=== PATIENT | male | born 1970 | race Caucasian/White ===

== ENCOUNTER 2018-04-21 10:27 | Inpatient (IN) | payer OTHER, MEDICAID ==
[2018-04-21 12:11] LABS: ADD MAN DIFF? NO
[2018-04-21 12:17] LABS: WHITE BLOOD COUNT 8.3 10^3/ul (4.8-10.8)
[2018-04-21 12:17] LABS: BASOPHIL # 0.1 10^3/ul (0.0-0.1); EOSINOPHILS # 0.5 10^3/ul (0.0-0.5); EOSINOPHILS % 5.4 % (0.0-7.0); LYMPHOCYTES # 1.8 10^3/ul (0.8-2.9); LYMPHOCYTES % 22.1 % (15.0-51.0); MEAN CORPUSCULAR HEMOGLOBIN 30.2 pg (29.0-33.0); MEAN CORPUSCULAR HGB CONC 34.2 g/dl (32.0-37.0); MEAN CORPUSCULAR VOLUME 88.4 fl (82.0-101.0); MEAN PLATELET VOLUME 10.6 fl (7.4-10.4); MONOCYTE # 0.6 10^3/ul (0.3-0.9); NEUTROPHIL # 5.3 10^3/ul (1.6-7.5); NEUTROPHILS % 63.9 % (39.0-77.0); PLATELET COUNT 163 10^3/UL (140-415); RED CELL DISTRIBUTION WIDTH 13.1 % (11.5-14.5)
[2018-04-21 12:25] LABS: ADD UMIC YES; UR ASCORBIC ACID NEGATIVE (NEGATIVE); UR BACTERIA FEW /HPF (NONE SEEN); UR BILIRUBIN (Dip) NEGATIVE (NEGATIVE); UR BLOOD (Dip) 2+ mg/dL (NEGATIVE); UR CLARITY SLIGHTLY CLOUDY (CLEAR); UR COLOR YELLOW (YELLOW); UR GLUCOSE (Dip) NEGATIVE (NEGATIVE); UR KETONES (Dip) TRACE mg/dL (NEGATIVE); UR LEUKOCYTE ESTERASE (Dip) NEGATIVE Leu/ul (NEGATIVE); UR MUCUS MANY /HPF (NONE SEEN); UR NITRITE (Dip) NEGATIVE (NEGATIVE); UR RBC 26 /HPF (0-5); UR SPECIFIC GRAVITY (Dip) 1.023 (1.003-1.030); UR TOTAL PROTEIN (Dip) 1+ mg/dl (NEGATIVE); UR UROBILINOGEN (Dip) 1+ mg/dL (NEGATIVE); UR WBC 5 /HPF (0-5)
[2018-04-21 12:32] LABS: ALANINE AMINOTRANSFERASE 23 IU/L (13-69); ALBUMIN 3.9 g/dl (3.3-4.9); ALBUMIN/GLOBULIN RATIO 1.14; ALKALINE PHOSPHATASE 76 IU/L (42-121); ANION GAP 11 (8-16); ASPARTATE AMINO TRANSFERASE 23 IU/L (15-46); BILIRUBIN,INDIRECT 0.5 mg/dl (0-1.1); BILIRUBIN,TOTAL 0.5 mg/dl (0.2-1.3); BLOOD UREA NITROGEN 11 mg/dl (7-20); CALCIUM 9.1 mg/dl (8.4-10.2); CARBON DIOXIDE 29 mmol/L (21-31); CHLORIDE 107 mmol/L (97-110); CREATININE 0.92 mg/dl (0.61-1.24); GLUCOSE 93 mg/dl (70-220); LIPASE 66 U/L (23-300); SODIUM 143 mmol/L (135-144); TOTAL PROTEIN 7.3 g/dl (6.1-8.1)
[2018-04-21 12:44] LABS: TROPONIN-I 0.011 ng/ml (0.000-0.120)
[2018-04-21 13:17] LABS: D-DIMER > 10000.00 ng/ml (<460)
[2018-04-21] MEDS: IOHEXOL 100 ML (13:30)
[2018-04-21] MEDS: SOD CHLORIDE 0.9% 100 ML (13:30)
[2018-04-21 14:03] LABS: INR 1.07; PARTIAL THROMBOPLASTIN TIME 34.3 Sec (25.0-35.0); PT RATIO 1.1
[2018-04-21] MEDS ORDERED: NACL 0.9% 3 ML SYG IV (15:00)
[2018-04-21] MEDS ORDERED: ONDANSETRON 4 MG INJ IV (15:30)
[2018-04-21] MEDS ORDERED: ACETAMINOPHEN 325 MG TAB PO (15:30)
[2018-04-21] MEDS: HEPARIN 25000 UNITS/250 ML 250 ML IV (15:39)
[2018-04-21] MEDS: OXYCODONE/ACETAMINOPHEN (5/325) TAB PO ×2 (15:46→21:48)
[2018-04-21] MEDS ORDERED: HEPARIN 1000 UNITS/ML 10 ML INJ IV ×3 (16:00)
[2018-04-21] MEDS: HEPARIN 1000 UNITS/ML 10 ML INJ IV (16:09)
[2018-04-21] MEDS: QUETIAPINE 100 MG TAB PO (20:15)
[2018-04-21] MEDS ORDERED: TAMSULOSIN (SR) 0.4 MG CAP PO (21:00)
[2018-04-22 00:58] LABS: PARTIAL THROMBOPLASTIN TIME 142.8 Sec (25.0-35.0)
[2018-04-22 02:46] LABS: PARTIAL THROMBOPLASTIN TIME 50.1 Sec (25.0-35.0)
[2018-04-22] MEDS: PANTOPRAZOLE (EC) 40 MG TAB PO (05:40)
[2018-04-22] MEDS: OXYCODONE/ACETAMINOPHEN (5/325) TAB PO ×2 (05:41→20:40)
[2018-04-22] MEDS: DULOXETINE 30 MG CAP DR PO (09:06)
[2018-04-22 09:44] LABS: ADD MAN DIFF? NO
[2018-04-22 09:48] LABS: BASOPHIL # 0.1 10^3/ul (0.0-0.1); BASOPHILS % 1.3 % (0.0-2.0); EOSINOPHILS # 0.7 10^3/ul (0.0-0.5); HEMATOCRIT 35.3 % (42.0-52.0); HEMOGLOBIN 11.8 g/dl (14.0-18.0); LYMPHOCYTES # 2.5 10^3/ul (0.8-2.9); LYMPHOCYTES % 35.4 % (15.0-51.0); MEAN CORPUSCULAR HEMOGLOBIN 29.9 pg (29.0-33.0); MEAN CORPUSCULAR HGB CONC 33.4 g/dl (32.0-37.0); MEAN CORPUSCULAR VOLUME 89.6 fl (82.0-101.0); MEAN PLATELET VOLUME 11.6 fl (7.4-10.4); MONOCYTE # 0.5 10^3/ul (0.3-0.9); MONOCYTES % 6.7 % (0.0-11.0); NEUTROPHIL # 3.2 10^3/ul (1.6-7.5); NEUTROPHILS % 45.9 % (39.0-77.0); PLATELET COUNT 165 10^3/UL (140-415); RED BLOOD COUNT 3.94 10^6/ul (4.70-6.10); RED CELL DISTRIBUTION WIDTH 13.1 % (11.5-14.5)
[2018-04-22 10:05] LABS: ALANINE AMINOTRANSFERASE 22 IU/L (13-69); ALBUMIN 3.4 g/dl (3.3-4.9); ALBUMIN/GLOBULIN RATIO 1.03; ALKALINE PHOSPHATASE 69 IU/L (42-121); ASPARTATE AMINO TRANSFERASE 20 IU/L (15-46); BILIRUBIN,INDIRECT 0.3 mg/dl (0-1.1); BILIRUBIN,TOTAL 0.3 mg/dl (0.2-1.3); BLOOD UREA NITROGEN 11 mg/dl (7-20); CALCIUM 8.6 mg/dl (8.4-10.2); CARBON DIOXIDE 28 mmol/L (21-31); CHLORIDE 104 mmol/L (97-110); CREATININE 0.82 mg/dl (0.61-1.24); GLUCOSE 82 mg/dl (70-220); POTASSIUM 3.8 mmol/L (3.5-5.1); TOTAL PROTEIN 6.7 g/dl (6.1-8.1)
[2018-04-22 10:32] LABS: ANION GAP 12 (8-16); SODIUM 140 mmol/L (135-144)
[2018-04-22 10:43] LABS: PARTIAL THROMBOPLASTIN TIME 109.9 Sec (25.0-35.0)
[2018-04-22] MEDS: HEPARIN 25000 UNITS/250 ML 250 ML IV (11:07)
[2018-04-22 11:08] LABS: HEMOGLOBIN A1C 6.1 % (0-5.9)
[2018-04-22 17:31] LABS: PARTIAL THROMBOPLASTIN TIME 76.8 Sec (25.0-35.0)
[2018-04-22] MEDS: QUETIAPINE 100 MG TAB PO (20:40)
[2018-04-22 23:57] LABS: PARTIAL THROMBOPLASTIN TIME 65.5 Sec (25.0-35.0)
[2018-04-23] MEDS: HEPARIN 25000 UNITS/250 ML 250 ML IV ×2 (00:14→02:22)
[2018-04-23] MEDS: PANTOPRAZOLE (EC) 40 MG TAB PO (05:16)
[2018-04-23 09:22] LABS: PARTIAL THROMBOPLASTIN TIME 101.2 Sec (25.0-35.0)
[2018-04-23] MEDS: DULOXETINE 30 MG CAP DR PO (09:34)
[2018-04-23] MEDS: OXYCODONE/ACETAMINOPHEN (5/325) TAB PO ×2 (13:20→21:20)
[2018-04-23] MEDS: ALBUTEROL/IPRATROPIUM (NEB) 3 ML AMP HHN ×2 (16:49→19:32)
[2018-04-23] MEDS: RIVAROXABAN 15 MG TABLET PO (17:32)
[2018-04-23] MEDS: QUETIAPINE 100 MG TAB PO (21:16)
[2018-04-24] MEDS: ALBUTEROL/IPRATROPIUM (NEB) 3 ML AMP HHN ×2 (02:00→08:20)
[2018-04-24] MEDS: PANTOPRAZOLE (EC) 40 MG TAB PO (05:39)
[2018-04-24] MEDS: OXYCODONE/ACETAMINOPHEN (5/325) TAB PO (05:39)
[2018-04-24] MEDS: DULOXETINE 30 MG CAP DR PO (08:05)
[2018-04-24] MEDS: RIVAROXABAN 15 MG TABLET PO (08:05)
[2018-04-24 11:46] LABS: AADO2 Arterial 33.9 mmHg (7.0-24.0); Allen Test ACCEPTAB; Arterial Base Excess 0.7 mmol/L (-3.0-3); Arterial Blood Gas Oxygen Sat 91.4 mmHG (95.0-98.0); Arterial COHb 0.3 % (0.0-3.0); Arterial HCO3 25.9 mmol/L (22.0-26.0); Arterial MetHb 0.1 % (0.0-1.5); Arterial Total Hemglobin 13.6 g/dl (12.0-18.0); Arterial pCO2 43.9 mmhg (35-45); MODE ROOM AIR; Site Right Radial
== END 2018-04-24 12:40 | disposition home or self-care (01) | DRG 175 ==
LOC: FTE 10:27 → TEL 15:04
PROC: 3E033GC Introduction of Other Therapeutic Substance into Peripheral Vein, Percutaneous Approach (ICD-10-PCS; principal; 2018-04-21)
PROC: B31U1ZZ Fluoroscopy of Pulmonary Trunk using Low Osmolar Contrast (ICD-10-PCS; 2018-04-21)
PROC: BB241ZZ Computerized Tomography (CT Scan) of Bilateral Lungs using Low Osmolar Contrast (ICD-10-PCS; 2018-04-21)
DX: I26.92 Saddle embolus of pulmonary artery without acute cor pulmonale (principal); J96.01 Acute respiratory failure with hypoxia; I82.411 Acute embolism and thrombosis of right femoral vein; I82.431 Acute embolism and thrombosis of right popliteal vein; I10 Essential (primary) hypertension; E78.5 Hyperlipidemia, unspecified; F31.9 Bipolar disorder, unspecified; F17.210 Nicotine dependence, cigarettes, uncomplicated; Z79.02 Long term (current) use of antithrombotics/antiplatelets; Z79.01 Long term (current) use of anticoagulants
CPT/HCPCS: 36415; 36600; 71045; 71275; 80053; 81001; 82803; 83036; 83690; 84484; 85025; 85378; 85610; 85730; 93005; 93306; 93971; 94640; 94664; 99285-25

== ENCOUNTER 2018-04-25 11:35 | Inpatient (IN) | payer OTHER ==
[2018-04-25 12:42] LABS: ADD MAN DIFF? NO
[2018-04-25 12:44] LABS: BASOPHIL # 0.1 10^3/ul (0.0-0.1); BASOPHILS % 1.1 % (0.0-2.0); EOSINOPHILS # 0.6 10^3/ul (0.0-0.5); HEMATOCRIT 40.2 % (42.0-52.0); HEMOGLOBIN 13.5 g/dl (14.0-18.0); LYMPHOCYTES # 1.6 10^3/ul (0.8-2.9); LYMPHOCYTES % 21.7 % (15.0-51.0); MEAN CORPUSCULAR HEMOGLOBIN 30.1 pg (29.0-33.0); MEAN CORPUSCULAR HGB CONC 33.6 g/dl (32.0-37.0); MEAN CORPUSCULAR VOLUME 89.7 fl (82.0-101.0); MEAN PLATELET VOLUME 10.1 fl (7.4-10.4); MONOCYTE # 0.5 10^3/ul (0.3-0.9); MONOCYTES % 7.1 % (0.0-11.0); NEUTROPHIL # 4.4 10^3/ul (1.6-7.5); NEUTROPHILS % 61.3 % (39.0-77.0); PLATELET COUNT 241 10^3/UL (140-415); RED BLOOD COUNT 4.48 10^6/ul (4.70-6.10)
[2018-04-25 12:44] LABS: WHITE BLOOD COUNT 7.2 10^3/ul (4.8-10.8)
[2018-04-25 13:04] LABS: INR 1.58; PROTIME 19.2 Sec (11.9-14.9); PT RATIO 1.5
[2018-04-25 13:05] LABS: ALANINE AMINOTRANSFERASE 43 IU/L (13-69); ALBUMIN 4.4 g/dl (3.3-4.9); ALBUMIN/GLOBULIN RATIO 1.22; ALKALINE PHOSPHATASE 75 IU/L (42-121); ANION GAP 12 (8-16); ASPARTATE AMINO TRANSFERASE 57 IU/L (15-46); BILIRUBIN,INDIRECT 0.3 mg/dl (0-1.1); BILIRUBIN,TOTAL 0.3 mg/dl (0.2-1.3); BLOOD UREA NITROGEN 11 mg/dl (7-20); CALCIUM 9.5 mg/dl (8.4-10.2); CARBON DIOXIDE 29 mmol/L (21-31); CHLORIDE 103 mmol/L (97-110); GLUCOSE 116 mg/dl (70-220); PARTIAL THROMBOPLASTIN TIME 43.7 Sec (25.0-35.0); SODIUM 140 mmol/L (135-144)
[2018-04-25] MEDS: OXYCODONE/ACETAMINOPHEN (5/325) TAB PO ×2 (14:33→20:39)
[2018-04-25] MEDS ORDERED: ONDANSETRON 4 MG INJ IV (15:00)
[2018-04-25] MEDS ORDERED: ACETAMINOPHEN 325 MG TAB PO (15:00)
[2018-04-25] MEDS ORDERED: NACL 0.9% 3 ML SYG IV (15:30)
[2018-04-25] MEDS: RIVAROXABAN 15 MG TABLET PO (18:51)
[2018-04-25] MEDS: QUETIAPINE 100 MG TAB PO (20:38)
[2018-04-26] MEDS: RIVAROXABAN 15 MG TABLET PO ×2 (08:42→17:37)
[2018-04-26] MEDS: OXYCODONE/ACETAMINOPHEN (5/325) TAB PO ×2 (13:41→20:21)
[2018-04-26] MEDS: QUETIAPINE 100 MG TAB PO (20:21)
[2018-04-27] MEDS: RIVAROXABAN 15 MG TABLET PO ×2 (09:45→18:14)
[2018-04-27] MEDS: OXYCODONE/ACETAMINOPHEN (5/325) TAB PO (09:47)
== END 2018-04-27 18:30 | disposition home or self-care (01) | DRG 176 ==
LOC: FTE 11:35 → MS1 14:37
DX: I26.99 Other pulmonary embolism without acute cor pulmonale (principal); I82.401 Acute embolism and thrombosis of unspecified deep veins of right lower extremity; R55 Syncope and collapse; F17.200 Nicotine dependence, unspecified, uncomplicated; Z79.01 Long term (current) use of anticoagulants
CPT/HCPCS: 36415; 71045; 80053; 83036; 85025; 85610; 85730; 99285-25

== ENCOUNTER 2018-06-17 08:58 | Emergency (ER) | payer OTHER ==
[2018-06-17 09:29] LABS: ADD MAN DIFF? NO
[2018-06-17 09:31] LABS: BASOPHILS % 0.7 % (0.0-2.0); EOSINOPHILS # 0.3 10^3/ul (0.0-0.5); EOSINOPHILS % 4.8 % (0.0-7.0); HEMATOCRIT 40.2 % (42.0-52.0); HEMOGLOBIN 13.6 g/dl (14.0-18.0); LYMPHOCYTES # 1.6 10^3/ul (0.8-2.9); LYMPHOCYTES % 30.4 % (15.0-51.0); MEAN CORPUSCULAR HEMOGLOBIN 30.3 pg (29.0-33.0); MEAN CORPUSCULAR HGB CONC 33.8 g/dl (32.0-37.0); MEAN CORPUSCULAR VOLUME 89.5 fl (82.0-101.0); MEAN PLATELET VOLUME 10.1 fl (7.4-10.4); MONOCYTE # 0.5 10^3/ul (0.3-0.9); MONOCYTES % 9.7 % (0.0-11.0); NEUTROPHIL # 2.9 10^3/ul (1.6-7.5); NEUTROPHILS % 53.8 % (39.0-77.0); PLATELET COUNT 221 10^3/UL (140-415); RED BLOOD COUNT 4.49 10^6/ul (4.70-6.10); RED CELL DISTRIBUTION WIDTH 13.1 % (11.5-14.5)
[2018-06-17 09:31] LABS: WHITE BLOOD COUNT 5.4 10^3/ul (4.8-10.8)
[2018-06-17] MEDS: morphine 4 MG/ML VIAL IV (09:37)
[2018-06-17] MEDS: ONDANSETRON 4 MG INJ IV (09:37)
[2018-06-17] MEDS: SOD CHLORIDE 0.9% 1,000 ML IV (09:38)
[2018-06-17 10:04] LABS: POTASSIUM 3.9 mmol/L (3.5-5.1); SODIUM 141 mmol/L (135-144)
[2018-06-17 10:05] LABS: ANION GAP 12 (8-16); BLOOD UREA NITROGEN 9 mg/dl (7-20); CALCIUM 9.3 mg/dl (8.4-10.2); CARBON DIOXIDE 26 mmol/L (21-31); CHLORIDE 107 mmol/L (97-110); CREATININE 1.01 mg/dl (0.61-1.24); GLUCOSE 104 mg/dl (70-220)
[2018-06-17 10:16] LABS: TROPONIN-I < 0.012 ng/ml (0.000-0.120)
[2018-06-17] MEDS: SOD CHLORIDE 0.9% 100 ML (10:35)
[2018-06-17] MEDS: IOHEXOL 100 ML (10:35)
[2018-06-17] MEDS: IOHEXOL 350MG/ML 50 ML BTL (10:36)
== END 2018-06-17 13:33 | disposition home or self-care (01) ==
LOC: E/R 13:33
DX: R07.9 Chest pain, unspecified (principal); R42 Dizziness and giddiness; M54.9 Dorsalgia, unspecified; F17.210 Nicotine dependence, cigarettes, uncomplicated
CPT/HCPCS: 36415; 71045; 71275; 75635; 80048; 84484; 85025; 93005; 96374; 96375; 99285-25

== ENCOUNTER 2018-09-12 09:30 | Emergency (ER) | payer OTHER ==
[2018-09-12] MEDS: HYDROmorphONE 1 MG/ML SYG IV ×3 (10:11→12:42)
[2018-09-12] MEDS: ONDANSETRON 4 MG INJ IV ×2 (10:11→12:38)
[2018-09-12 10:13] LABS: ADD MAN DIFF? NO
[2018-09-12 10:25] LABS: BASOPHIL # 0.1 10^3/ul (0.0-0.1); BASOPHILS % 0.9 % (0.0-2.0); EOSINOPHILS # 0.4 10^3/ul (0.0-0.5); EOSINOPHILS % 6.3 % (0.0-7.0); HEMATOCRIT 39.5 % (42.0-52.0); HEMOGLOBIN 13.6 g/dl (14.0-18.0); LYMPHOCYTES % 29.1 % (15.0-51.0); MEAN CORPUSCULAR HEMOGLOBIN 31.5 pg (29.0-33.0); MEAN CORPUSCULAR HGB CONC 34.4 g/dl (32.0-37.0); MEAN CORPUSCULAR VOLUME 91.4 fl (82.0-101.0); MEAN PLATELET VOLUME 10.1 fl (7.4-10.4); MONOCYTE # 0.7 10^3/ul (0.3-0.9); MONOCYTES % 9.6 % (0.0-11.0); NEUTROPHIL # 3.7 10^3/ul (1.6-7.5); NEUTROPHILS % 53.5 % (39.0-77.0); PLATELET COUNT 262 10^3/UL (140-415); RED BLOOD COUNT 4.32 10^6/ul (4.70-6.10); RED CELL DISTRIBUTION WIDTH 13.4 % (11.5-14.5)
[2018-09-12 10:25] LABS: WHITE BLOOD COUNT 6.9 10^3/ul (4.8-10.8)
[2018-09-12 10:31] LABS: ADD UMIC YES; UR ASCORBIC ACID NEGATIVE (NEGATIVE); UR BACTERIA FEW /HPF (NONE SEEN); UR BILIRUBIN (Dip) NEGATIVE (NEGATIVE); UR BLOOD (Dip) 1+ mg/dL (NEGATIVE); UR CLARITY CLEAR (CLEAR); UR COLOR STRAW (YELLOW); UR GLUCOSE (Dip) NEGATIVE (NEGATIVE); UR KETONES (Dip) NEGATIVE (NEGATIVE); UR LEUKOCYTE ESTERASE (Dip) NEGATIVE Leu/ul (NEGATIVE); UR NITRITE (Dip) NEGATIVE (NEGATIVE); UR RBC 4 /HPF (0-5); UR SPECIFIC GRAVITY (Dip) 1.004 (1.003-1.030); UR TOTAL PROTEIN (Dip) NEGATIVE (NEGATIVE); UR UROBILINOGEN (Dip) NEGATIVE (NEGATIVE); UR WBC 0 /HPF (0-5)
[2018-09-12 10:45] LABS: ALANINE AMINOTRANSFERASE 26 IU/L (13-69); ALBUMIN 4.3 g/dl (3.3-4.9); ALKALINE PHOSPHATASE 60 IU/L (42-121); ANION GAP 9 (5-13); ASPARTATE AMINO TRANSFERASE 33 IU/L (15-46); BILIRUBIN,INDIRECT 0.2 mg/dl (0-1.1); BILIRUBIN,TOTAL 0.2 mg/dl (0.2-1.3); BLOOD UREA NITROGEN 8 mg/dl (7-20); CALCIUM 9.2 mg/dl (8.4-10.2); CARBON DIOXIDE 26 mmol/L (21-31); CHLORIDE 105 mmol/L (97-110); CREATINE KINASE 185 IU/L (23-200); Estimated GFR > 60 mL/min (>60); GLUCOSE 106 mg/dl (70-220); POTASSIUM 3.8 mmol/L (3.5-5.1); SODIUM 140 mmol/L (135-144); TOTAL PROTEIN 7.6 g/dl (6.1-8.1)
[2018-09-12 10:57] LABS: B-TYPE NATRIURETIC PEPTIDE < 11 PG/ML (0-125); CK INDEX 0.5; CK-MB 0.86 ng/ml (0.0-2.4); TROPONIN-I < 0.012 ng/ml (0.000-0.120)
[2018-09-12] MEDS: SOD CHLORIDE 0.9% 100 ML (11:17)
[2018-09-12] MEDS: IODIXANOL LOCM 100 ML BTL (11:17)
== END 2018-09-12 13:29 | disposition home or self-care (01) ==
LOC: E/R 09:30
DX: J90 Pleural effusion, not elsewhere classified (principal); F17.210 Nicotine dependence, cigarettes, uncomplicated
CPT/HCPCS: 71045; 71275; 80053; 81001; 82550; 82553; 83880; 84484; 85025; 93005; 96374; 96375; 96376; 99285-25

== ENCOUNTER 2018-09-13 10:51 | Observation (INO) | payer OTHER ==
[2018-09-13 11:46] LABS: ADD MAN DIFF? NO
[2018-09-13] MEDS: MECLIZINE 12.5 MG TAB PO ×2 (11:46→12:00)
[2018-09-13] MEDS: HYDROmorphONE 1 MG/ML SYG IV (11:46)
[2018-09-13] MEDS: SOD CHLORIDE 0.9% 1,000 ML IV ×2 (11:46→14:49)
[2018-09-13] MEDS: ONDANSETRON 4 MG INJ IV (11:47)
[2018-09-13 11:48] LABS: WHITE BLOOD COUNT 6.8 10^3/ul (4.8-10.8)
[2018-09-13 11:48] LABS: BASOPHIL # 0.1 10^3/ul (0.0-0.1); EOSINOPHILS # 0.4 10^3/ul (0.0-0.5); EOSINOPHILS % 5.4 % (0.0-7.0); HEMATOCRIT 38.7 % (42.0-52.0); HEMOGLOBIN 13.1 g/dl (14.0-18.0); LYMPHOCYTES # 1.7 10^3/ul (0.8-2.9); LYMPHOCYTES % 24.6 % (15.0-51.0); MEAN CORPUSCULAR HEMOGLOBIN 30.8 pg (29.0-33.0); MEAN CORPUSCULAR HGB CONC 33.9 g/dl (32.0-37.0); MEAN CORPUSCULAR VOLUME 90.8 fl (82.0-101.0); MEAN PLATELET VOLUME 9.6 fl (7.4-10.4); MONOCYTE # 0.7 10^3/ul (0.3-0.9); NEUTROPHILS % 58.6 % (39.0-77.0); PLATELET COUNT 244 10^3/UL (140-415); RED BLOOD COUNT 4.26 10^6/ul (4.70-6.10); RED CELL DISTRIBUTION WIDTH 13.3 % (11.5-14.5)
[2018-09-13 12:07] LABS: PROTIME 16.3 Sec (11.9-14.9); PT RATIO 1.3
[2018-09-13 12:08] LABS: PARTIAL THROMBOPLASTIN TIME 41.4 Sec (23.0-35.0)
[2018-09-13] MEDS ORDERED: KETOROLAC 30 MG INJ IV (13:30)
[2018-09-13] MEDS ORDERED: ALBUTEROL 0.083% (NEB) 2.5 MG/3 ML AMP HHN (13:30)
[2018-09-13] MEDS ORDERED: HYDROCODONE/APAP (5/325) TAB PO (13:30)
[2018-09-13] MEDS ORDERED: NITROGLYCERIN (SL) 0.4 MG TAB SL ×2 (13:30)
[2018-09-13] MEDS ORDERED: NACL 0.9% 3 ML SYG IV (13:30)
[2018-09-13] MEDS ORDERED: ONDANSETRON 4 MG INJ IV (13:30)
[2018-09-13] MEDS ORDERED: NAPROXEN 500 MG TAB PO (13:30)
[2018-09-13] MEDS ORDERED: MAGNESIUM HYDROXIDE 30ML CUP PO (13:30)
[2018-09-13] MEDS ORDERED: MECLIZINE 25 MG TAB PO (13:30)
[2018-09-13] MEDS ORDERED: ACETAMINOPHEN 325 MG TAB PO ×2 (13:30)
[2018-09-13] MEDS ORDERED: DOCUSATE SODIUM 100 MG CAP PO ×2 (13:30→21:00)
[2018-09-13 13:32] LABS: ALANINE AMINOTRANSFERASE 32 IU/L (13-69); ALBUMIN 4.1 g/dl (3.3-4.9); ALBUMIN/GLOBULIN RATIO 1.36; ALKALINE PHOSPHATASE 54 IU/L (42-121); ANION GAP 6 (5-13); ASPARTATE AMINO TRANSFERASE 34 IU/L (15-46); BILIRUBIN,INDIRECT 0.1 mg/dl (0-1.1); BILIRUBIN,TOTAL 0.1 mg/dl (0.2-1.3); BLOOD UREA NITROGEN 11 mg/dl (7-20); CALCIUM 9.2 mg/dl (8.4-10.2); CARBON DIOXIDE 26 mmol/L (21-31); CHLORIDE 107 mmol/L (97-110); CREATININE 0.96 mg/dl (0.61-1.24); Estimated GFR > 60 mL/min (>60); GLUCOSE 104 mg/dl (70-220); SODIUM 139 mmol/L (135-144); TOTAL PROTEIN 7.1 g/dl (6.1-8.1)
[2018-09-13 14:16] LABS: CREATINE KINASE 160 IU/L (23-200)
[2018-09-13 14:30] LABS: B-TYPE NATRIURETIC PEPTIDE < 11 PG/ML (0-125); CK INDEX 0.3; CK-MB 0.53 ng/ml (0.0-2.4); TROPONIN-I < 0.012 ng/ml (0.000-0.120)
[2018-09-13] MEDS: HYDROmorphONE 0.5 MG/0.5 ML SYG IV ×2 (14:49→20:45)
[2018-09-13] MEDS: LORAZEPAM 2 MG INJ IV (15:41)
[2018-09-13] MEDS ORDERED: LORAZEPAM 2 MG INJ IV (16:00)
[2018-09-13] MEDS: RIVAROXABAN 20 MG TABLET PO (17:21)
[2018-09-13] MEDS: MECLIZINE 25 MG TAB PO (21:17)
[2018-09-13] MEDS: SENNA/DOCUSATE NA (8.6MG/50MG) TAB PO (21:17)
[2018-09-13] MEDS: QUETIAPINE 100 MG TAB PO (21:17)
[2018-09-14] MEDS: HYDROmorphONE 0.5 MG/0.5 ML SYG IV ×6 (01:19→21:49)
[2018-09-14] MEDS: PANTOPRAZOLE (EC) 40 MG TAB PO (06:00)
[2018-09-14 06:08] LABS: ADD MAN DIFF? NO
[2018-09-14 06:11] LABS: WHITE BLOOD COUNT 5.5 10^3/ul (4.8-10.8)
[2018-09-14 06:11] LABS: BASOPHIL # 0.1 10^3/ul (0.0-0.1); BASOPHILS % 1.1 % (0.0-2.0); EOSINOPHILS # 0.5 10^3/ul (0.0-0.5); EOSINOPHILS % 8.7 % (0.0-7.0); HEMOGLOBIN 11.9 g/dl (14.0-18.0); LYMPHOCYTES # 2.2 10^3/ul (0.8-2.9); LYMPHOCYTES % 38.8 % (15.0-51.0); MEAN CORPUSCULAR HEMOGLOBIN 31.2 pg (29.0-33.0); MEAN CORPUSCULAR VOLUME 91.9 fl (82.0-101.0); MEAN PLATELET VOLUME 9.8 fl (7.4-10.4); MONOCYTE # 0.6 10^3/ul (0.3-0.9); MONOCYTES % 10.5 % (0.0-11.0); NEUTROPHIL # 2.2 10^3/ul (1.6-7.5); NEUTROPHILS % 40.2 % (39.0-77.0); PLATELET COUNT 225 10^3/UL (140-415); RED BLOOD COUNT 3.81 10^6/ul (4.70-6.10); RED CELL DISTRIBUTION WIDTH 13.5 % (11.5-14.5)
[2018-09-14 07:08] LABS: ANION GAP 8 (5-13); BLOOD UREA NITROGEN 11 mg/dl (7-20); CALCIUM 9.4 mg/dl (8.4-10.2); CARBON DIOXIDE 28 mmol/L (21-31); CHLORIDE 104 mmol/L (97-110); CREATININE 0.95 mg/dl (0.61-1.24); Estimated GFR > 60 mL/min (>60); GLUCOSE 98 mg/dl (70-220); MAGNESIUM 2.1 mg/dl (1.7-2.5); POTASSIUM 3.8 mmol/L (3.5-5.1); SODIUM 140 mmol/L (135-144)
[2018-09-14] MEDS: FENOFIBRATE 145 MG TAB PO (08:53)
[2018-09-14] MEDS: NICOTINE (21 MG/24 HR) PATCH TRANSDERM (08:53)
[2018-09-14] MEDS: DULOXETINE 30 MG CAP DR PO (08:53)
[2018-09-14] MEDS: MECLIZINE 25 MG TAB PO ×3 (08:53→21:49)
[2018-09-14] MEDS: SENNA/DOCUSATE NA (8.6MG/50MG) TAB PO ×2 (08:53→21:49)
[2018-09-14] MEDS ORDERED: ENOXAPARIN 40 MG/0.4 ML SYG SC (09:00)
[2018-09-14] MEDS: RIVAROXABAN 20 MG TABLET PO (17:33)
[2018-09-14] MEDS: QUETIAPINE 100 MG TAB PO (21:49)
[2018-09-15] MEDS: HYDROmorphONE 0.5 MG/0.5 ML SYG IV ×5 (04:05→21:44)
[2018-09-15] MEDS: PANTOPRAZOLE (EC) 40 MG TAB PO (06:30)
[2018-09-15] MEDS: MECLIZINE 25 MG TAB PO ×3 (08:12→20:39)
[2018-09-15] MEDS: NICOTINE (21 MG/24 HR) PATCH TRANSDERM (08:12)
[2018-09-15] MEDS: FENOFIBRATE 145 MG TAB PO (08:12)
[2018-09-15] MEDS: DULOXETINE 30 MG CAP DR PO (08:12)
[2018-09-15] MEDS: SENNA/DOCUSATE NA (8.6MG/50MG) TAB PO ×2 (08:12→20:39)
[2018-09-15 13:03] LABS: ADD MAN DIFF? NO
[2018-09-15 13:06] LABS: WHITE BLOOD COUNT 6.5 10^3/ul (4.8-10.8)
[2018-09-15 13:06] LABS: BASOPHIL # 0.1 10^3/ul (0.0-0.1); BASOPHILS % 1.1 % (0.0-2.0); EOSINOPHILS # 0.6 10^3/ul (0.0-0.5); EOSINOPHILS % 8.4 % (0.0-7.0); HEMOGLOBIN 13.4 g/dl (14.0-18.0); LYMPHOCYTES # 2.3 10^3/ul (0.8-2.9); LYMPHOCYTES % 34.7 % (15.0-51.0); MEAN CORPUSCULAR HEMOGLOBIN 30.8 pg (29.0-33.0); MEAN CORPUSCULAR HGB CONC 33.5 g/dl (32.0-37.0); MEAN PLATELET VOLUME 9.9 fl (7.4-10.4); MONOCYTE # 0.7 10^3/ul (0.3-0.9); MONOCYTES % 9.9 % (0.0-11.0); NEUTROPHIL # 2.9 10^3/ul (1.6-7.5); PLATELET COUNT 249 10^3/UL (140-415); RED BLOOD COUNT 4.35 10^6/ul (4.70-6.10); RED CELL DISTRIBUTION WIDTH 13.1 % (11.5-14.5)
[2018-09-15 13:54] LABS: TROPONIN-I < 0.012 ng/ml (0.000-0.120)
[2018-09-15] MEDS: ONDANSETRON 4 MG INJ IV (14:41)
[2018-09-15] MEDS: RIVAROXABAN 20 MG TABLET PO (17:37)
[2018-09-15] MEDS: QUETIAPINE 100 MG TAB PO (20:39)
[2018-09-16] MEDS: HYDROmorphONE 0.5 MG/0.5 ML SYG IV ×2 (02:13→08:55)
[2018-09-16] MEDS: PANTOPRAZOLE (EC) 40 MG TAB PO (05:17)
[2018-09-16 05:42] LABS: ADD MAN DIFF? NO
[2018-09-16 05:54] LABS: WHITE BLOOD COUNT 6.2 10^3/ul (4.8-10.8)
[2018-09-16 05:54] LABS: BASOPHIL # 0.1 10^3/ul (0.0-0.1); EOSINOPHILS # 0.5 10^3/ul (0.0-0.5); HEMATOCRIT 36.8 % (42.0-52.0); HEMOGLOBIN 12.6 g/dl (14.0-18.0); LYMPHOCYTES # 2.1 10^3/ul (0.8-2.9); LYMPHOCYTES % 34.6 % (15.0-51.0); MEAN CORPUSCULAR HEMOGLOBIN 31.3 pg (29.0-33.0); MEAN CORPUSCULAR HGB CONC 34.2 g/dl (32.0-37.0); MEAN CORPUSCULAR VOLUME 91.3 fl (82.0-101.0); MEAN PLATELET VOLUME 10.1 fl (7.4-10.4); MONOCYTE # 0.6 10^3/ul (0.3-0.9); MONOCYTES % 10.1 % (0.0-11.0); NEUTROPHIL # 2.8 10^3/ul (1.6-7.5); NEUTROPHILS % 45.3 % (39.0-77.0); PLATELET COUNT 234 10^3/UL (140-415); RED BLOOD COUNT 4.03 10^6/ul (4.70-6.10); RED CELL DISTRIBUTION WIDTH 13.2 % (11.5-14.5)
[2018-09-16 06:17] LABS: ANION GAP 9 (5-13); BLOOD UREA NITROGEN 15 mg/dl (7-20); CALCIUM 9.3 mg/dl (8.4-10.2); CARBON DIOXIDE 32 mmol/L (21-31); CHLORIDE 100 mmol/L (97-110); Estimated GFR > 60 mL/min (>60); GLUCOSE 105 mg/dl (70-220); MAGNESIUM 2.1 mg/dl (1.7-2.5); PHOSPHORUS 4.5 mg/dl (2.5-4.9); POTASSIUM 4.1 mmol/L (3.5-5.1); SODIUM 141 mmol/L (135-144)
[2018-09-16] MEDS: NICOTINE (21 MG/24 HR) PATCH TRANSDERM (08:54)
[2018-09-16] MEDS: DULOXETINE 30 MG CAP DR PO (08:54)
[2018-09-16] MEDS: FENOFIBRATE 145 MG TAB PO (08:54)
[2018-09-16] MEDS: MECLIZINE 25 MG TAB PO (08:54)
[2018-09-16] MEDS: SENNA/DOCUSATE NA (8.6MG/50MG) TAB PO (08:54)
== END 2018-09-16 13:20 | disposition home or self-care (01) ==
LOC: E/R 10:51 → TEL 13:22
DX: R07.89 Other chest pain (principal); R42 Dizziness and giddiness; R55 Syncope and collapse; F17.200 Nicotine dependence, unspecified, uncomplicated; G89.29 Other chronic pain; M54.5 Low back pain
CPT/HCPCS: 70450; 70540; 70545; 70552; 80048; 80053; 82550; 82553; 83735; 83880; 84100; 84484; 85025; 85610; 85730; 93005; 96374; 96375; 97161; 97166; 99285-25; G0378